=== PATIENT | female | born 1985 | race African-American/Black ===

== ENCOUNTER → 2021-05-20 | Emergency (ER) | payer MEDICARE, OTHER ==
[~2021-05-20] VITALS: Ht 175.3 cm; Wt 85.0 kg
[2021-05-20 18:40] VITALS: BP 186/110
== END | disposition home or self-care (01) ==
LOC: ER 18:38
DX: S91.031A Puncture wound without foreign body, right ankle, initial encounter (principal); I10 Essential (primary) hypertension; X95.9XXA Assault by unspecified firearm discharge, initial encounter; Y93.9 Activity, unspecified; Y92.9 Unspecified place or not applicable; Z98.890 Other specified postprocedural states
CPT/HCPCS: 99283